=== PATIENT | male | born 1975 | race Caucasian/White ===

== ENCOUNTER → 2024-01-08 | Outpatient (CLI) | payer OTHER ==
[2024-01-09 09:50] LABS: Stool Occult Bld Immuno 1 Positive (NEGATIVE)
== END | disposition home or self-care (01) ==
LOC: LAB 11:45 → LAB SHORT 11:45
PROVIDERS: Family Medicine
DX: Z12.11 Encounter for screening for malignant neoplasm of colon (principal)
CPT/HCPCS: G0328

== ENCOUNTER 2024-08-09 13:00 | Day surgery (SDC) | payer OTHER ==
[~2024-08-09] VITALS: Ht 170.2 cm; Wt 106.1 kg
[~2024-08-09 13:00] MED LIST: Glycopyrrolate 0.2 MG/ML 1MLVIAL ONE; Lidocaine 2% 5 ML SDV ONE; Lidocaine HCl/Pf 1% 5 ML VIAL ONE; Ondansetron HCl 2 MG / ML 2ML Vial ONE; ePHEDrine Sulfate 50 MG/ML 1ML Injection ONE; propofoL 50 ML IV ONE
[2024-08-09] MEDS ORDERED: LISI5 (13:11)
[2024-08-09] MEDS ORDERED: MONTELUKAST SOD10 M1 (13:11)
[2024-08-09] MEDS ORDERED: ALBU8HFA2 (13:12)
[2024-08-09] MEDS ORDERED: LORA10ER (13:12)
[2024-08-09] MEDS ORDERED: Lactated Ringer's 1,000 ML IV ONE (13:33)
== END 2024-08-09 14:45 | disposition home or self-care (01) ==
LOC: ORSCSDS 13:00
PROVIDERS: Specialist
PROC: 0DBN8ZX Excision of Sigmoid Colon, Via Natural or Artificial Opening Endoscopic, Diagnostic (ICD-10-PCS; principal; 2024-08-09 14:30)
DX: K62.5 Hemorrhage of anus and rectum (principal); D12.5 Benign neoplasm of sigmoid colon; K64.4 Residual hemorrhoidal skin tags; K64.8 Other hemorrhoids; G47.33 Obstructive sleep apnea (adult) (pediatric); J45.909 Unspecified asthma, uncomplicated; I10 Essential (primary) hypertension; E66.9 Obesity, unspecified; Z68.36 Body mass index [BMI] 36.0-36.9, adult; Z79.899 Other long term (current) drug therapy
CPT/HCPCS: 88305; J2003; J2405; J2704; J7120